=== PATIENT | female | born 2000 | race Caucasian/White ===

== ENCOUNTER 2019-06-25 22:18 | Emergency (ER) | payer MEDICAID ==
[2019-06-25 22:29] VITALS: BP 138/91; PULSE 109
--- NOTE | 2019-06-25 23:01 | EDM.PDOC ---
ED HPI GENERAL MEDICAL PROBLEM - General Chief Complaint: Skin Complaint Stated Complaint: SWELLING BEHIND RIGHT EAR Time Seen by Provider: 06/25/19 22:30 Source of Information: Reports: Patient History Limitations: Reports: No Limitations - History of Present Illness INITIAL COMMENTS - FREE TEXT/NARRATIVE: 19-year-old female has had a persistent and worsening swelling behind her right ear for the last 6 days. It's now becoming more painful and the swelling is extending down the posterior cervical neck. No erythema or fever. She was recently on antibiotics for a dental infection on that side but is off the antibiotics. She has psoriasis of the scalp which involves the area of swelling. 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 Musculoskeletal History: Reports: Back Pain, Chronic, Fracture Other Musculoskeletal History: wrist Neurological History: Reports: Headaches, Chronic Psychiatric History: Reports: Depression Endocrine/Metabolic History: Reports: Obesity/BMI 30+ Dermatologic History: Reports: Psoriasis - Infectious Disease History Infectious Disease History: Reports: Chicken Pox Social & Family History - Tobacco Use Smoking Status *Q: Current Every Day Smoker Years of Tobacco use: 10 Packs/Tins Daily: 1 Used Tobacco, but Quit: No Second Hand Smoke Exposure: Yes - Caffeine Use Caffeine Use: Reports: Soda - Alcohol Use Days Per Week of Alcohol Use: 0 - Recreational Drug Use Recreational Drug Use: No - Living Situation & Occupation Living situation: Reports: Single Occupation: Employed ED ROS GENERAL - Review of Systems Review Of Systems: See Below Constitutional: Denies: Fever, Chills HEENT: Reports: Other (Recent dental infection treated with antibiotics) Respiratory: Denies: Shortness of Breath Cardiovascular: Denies: Chest Pain GI/Abdominal: Denies: Nausea, Vomiting Skin: Reports: Other (Significant scalp and extremity psoriasis) Neurological: Denies: Headache ED EXAM, SKIN/RASH Exam: See Below Exam Limited By: No Limitations General Appearance: Alert, No Apparent Distress (Looks uncomfortable but not distressed) Ears: Other (There is a 1.5 x 2 cm firm subcutaneous nodular lesion behind the right ear with some firmness extending down the posterior cervical area for 3-5 cm. It is tender but not erythematous or warm) Respiratory/Chest: No Respiratory Distress Course - Vital Signs Last Recorded V/S: Last Vital Signs Temp 97.5 F 06/25/19 22:37 Pulse 109 H 06/25/19 22:37 Resp 16 06/25/19 22:37 BP 138/91 H 06/25/19 22:37 Pulse Ox 95 06/25/19 22:37 - Orders/Labs/Meds Orders: Active Orders 24 hr Category Date Time Status CULTURE WOUND + SMEAR [RM] Stat Lab 06/25/19 23:03 Results Meds: Medications Discontinued Medications Generic Name Dose Route Start Last Admin Trade Name Angelic PRN Reason Stop Dose Admin Lidocaine HCl 5 ml 06/25/19 22:42 06/25/19 22:51 Xylocaine-Mpf 1% INJECT 06/25/19 22:43 5 ml ONETIME ONE Administration - Re-Assessments/Exams Free Text/Narrative Re-Assessment/Exam: 06/25/19 22:58 This likely is a sebaceous cyst or abscess behind the right ear, the area was sterilized with Betadine, infiltrated with 1% lidocaine and a #11 scalpel was used to place a small incision over the abscess. Purulent material was expelled and a culture obtained. The patient was given clindamycin to take for the next 5 days, 10 hydrocodone for extra pain control and encouraged to use moist heat for the next 2-3 days. She should also be taking anti-inflammatories. Departure - Departure Time of Disposition: 23:07 Disposition: Home, Self-Care 01 Condition: Good Clinical Impression: Cutaneous abscess of head [any part, except face] - Discharge Information Instructions: Skin Abscess, [id number] Referrals: PCP,None [Primary Care Provider] - Forms: ED Department Discharge Care Plan Goals: Moist wet compresses to the area or heat will help continue draining the abscess. A regular dose of ibuprofen or naproxen will also help, and add stronger pain medication if needed. Take antibiotic as prescribed until gone, and recheck in 2-3 days if not improving satisfactorily. - My Orders Last 24 Hours: My Active Orders 06/25/19 23:03 CULTURE WOUND + SMEAR [RM] Stat - Assessment/Plan Last 24 Hours: My Active Orders 06/25/19 23:03 CULTURE WOUND + SMEAR [] Stat
== END 2019-06-25 23:07 | disposition home or self-care (01) ==
LOC: JP.ED 22:18
DX: L02.811 Cutaneous abscess of head [any part, except face] (principal); I10 Essential (primary) hypertension; E66.9 Obesity, unspecified; F17.210 Nicotine dependence, cigarettes, uncomplicated
CPT/HCPCS: 10060; 87070; 87205; 99283; J2001; 87077; 87186

== ENCOUNTER 2020-10-05 06:38 | Inpatient (IN) | payer MEDICAID ==
[2020-10-05] MEDS ORDERED: Misoprostol 50 MCG (1/2 of 100 MCG) Tab VAG ONE (08:00)
[2020-10-05] MEDS ORDERED: Sodium Chloride 0.9% 10 ML Syringe FLUSH PRN ×2 (08:15→10:13)
[2020-10-05] MEDS ORDERED: Calcium Carbonate 500 MG Tab.Chew PO PRN (08:17)
[2020-10-05] MEDS ORDERED: Ondansetron 4 MG/2 ML SDV IV PRN (08:17)
[2020-10-05] MEDS ORDERED: Acetaminophen 325 MG Tab PO PRN (08:17)
--- NOTE | 2020-10-05 08:25 | PCM.LDHP ---
L&D History of Present Illness - General Date of Service: 10/05/20 Admit Problem/Dx: Patient Status Order with Admit Dx/Problem 10/05/20 08:15 Patient Status [ADT] Routine Admission Diagnosis/Problem Admission Diagnosis/Problem Term Source of Information: Patient History Limitations: Reports: No Limitations - History of Present Illness Introduction:: 10/05/20 20 yo is here at 40 1/7 for term elective induction of labor. She is GBS neg. Hgb 13.7 today. Blood type AB pos. Rubella immune. HIV/hep B/RPR all negative. 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 She saw GI during and will go back for treatment after . No complications this . Negative harmony screen. She is obese with a BMI of 58. She is here with her mother for labor support today. Timing/Duration: Reports: other (none on monitor, patient declines having contractions) - Related Data Allergies/Adverse Reactions: Allergies Allergy/AdvReac Type Severity Reaction Status Date / Time No Known Allergies Allergy Verified 06/25/19 22:32 Home Medications: Home Meds Pnv No.95/Ferrous Fum/Folic AC [ Caplet] 1 tab PO DAILY 08/30/20 [History] Sertraline [Zoloft] 1 tab PO DAILY 08/30/20 [History] Past Medical History - Past Health History Medical/Surgical History: Denies Medical/Surgical History Cardiovascular History: Reports: Heart Murmur, Hypertension Respiratory History: Reports: Asthma 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 OB/BYN History: lmp 1 wk ago Musculoskeletal History: Reports: Back Pain, Chronic, Fracture Other Musculoskeletal History: wrist Neurological History: Reports: Headaches, Chronic Psychiatric History: Reports: Depression Endocrine/Metabolic History: Reports: Obesity/BMI 30+ Dermatologic History: Reports: Psoriasis - Infectious Disease History Infectious Disease History: Reports: Chicken Pox, MRSA Social & Family History - Family History Family Medical History: Unobtainable - Tobacco Use Tobacco Use Status *Q: Former Tobacco User Used Tobacco, but Quit: Yes Month/Year Tobacco Last Used: 01/2020 - Caffeine Use Caffeine Use: Reports: None - Recreational Drug Use Recreational Drug Use: Yes Drug Use in Last 12 Months: No - Living Situation & Occupation Living situation: Reports: Single Occupation: Employed H&P Review of Systems - Review of Systems: Review Of Systems: See Below General: Reports: No Symptoms HEENT: Reports: No Symptoms Pulmonary: Reports: No Symptoms Cardiovascular: Reports: Edema Gastrointestinal: Reports: No Symptoms Genitourinary: Reports: No Symptoms Musculoskeletal: Reports: No Symptoms Skin: Reports: No Symptoms Psychiatric: Reports: No Symptoms Neurological: Reports: No Symptoms Hematologic/Lymphatic: Reports: No Symptoms Immunologic: Reports: No Symptoms L&D Exam - Exam Exam: See Below - Vital Signs Weight: 158.757 kg - OB Specific Contraction Intensity: none Movement: Active Heart Tones: Present Heart Rate (FHR) Variability: Moderate (6-25 bmp) Presentation: Vertex Estimated Weight: unable to estimate with leopolds due to body habitus - Henao Score Henao Score Cervix Position: Midposition Henao Score Consistency: Soft Henao Score Effacement: 51-70% Henao Score Dilation: 3-4 cm Henao Score 's Station: -1 ,0 Henao Score Total: 9 - Exam General: Alert, Oriented HEENT: PERRLA, Conjunctiva Clear, EACs Clear, EOMI, Hearing Intact, Mucosa Moist & [place], Nares Patent, Normal Nasal Septum, Posterior Pharynx Clear, Pupils Equal, Pupils Reactive, TMs Clear Neck: Supple, Trachea Midline Lungs: Clear to Auscultation, Normal Respiratory Effort Cardiovascular: Regular Rate, Regular Rhythm. No: Systolic Murmur, Diastolic Murmur GI/Abdominal Exam: Normal Bowel Sounds, Soft, Non-Tender, No Organomegaly, No Distention, No Abnormal Bruit, No Mass, Pelvis Stable Rectal Exam: Normal Exam, Normal Rectal Tone Genitourinary: Normal external exam, Normal bimanual exam, Cervical dilitation, Enlarged uterus Back Exam: Normal Inspection, Full Range of Motion Extremities: Normal Inspection, Normal Range of Motion, Non-Tender, No Pedal Edema, Normal Capillary Refill Skin: Warm, Dry, Intact Neurological: Cranial Nerves Intact, Reflexes Equal Bilateral Psychiatric: Alert, Normal Affect, Normal Mood - Patient Data Lab Results Last 24 hrs: Laboratory Results - last 24 hr 10/05/20 10/05/20 10/05/20 Range/Units 06:45 06:45 06:46 WBC 8.6 (4.5-11.0) K/uL RBC 4.70 (3.30-5.50) M/uL Hgb 13.7 (12.0-15.0) g/dL Hct 41.0 (36.0-48.0) % MCV 87 (80-98) fL MCH 29 (27-31) pg MCHC 33 (32-36) % Plt Count 166 (150-400) K/uL Neut % (Auto) 65 (36-66) % Lymph % (Auto) 22 L (24-44) % [place] % (Auto) 8 H (2-6) % Eos % (Auto) 4 (2-4) % Baso % (Auto) 0 (0-1) % Urine Color Yellow (YELLOW) Urine Appearance Slightly cloudy A (CLEAR) Urine pH 6.5 (5.0-8.0) Ur Specific [place] 1.025 (1.008-1.030) Urine Protein 30 H (NEGATIVE) mg/dL Urine Glucose (UA) Negative (NEGATIVE) mg/dL Urine Ketones Negative (NEGATIVE) mg/dL Urine Occult Blood Trace-intact H (NEGATIVE) Urine Nitrite Negative (NEGATIVE) Urine Bilirubin Negative (NEGATIVE) Urine Urobilinogen 0.2 (0.2-1.0) EU/dL Ur Leukocyte Esterase Trace H (NEGATIVE) Urine RBC 0-5 (0-5) Urine WBC 5-10 H (0-5) Ur Epithelial Cells Many Amorphous Sediment Not seen Urine Bacteria Moderate Urine Mucus Many Urine Opiates Screen Negative (NEGATIVE) Ur Oxycodone Screen Negative (NEGATIVE) Urine Methadone Screen Negative (NEGATIVE) Ur Propoxyphene Screen Negative (NEGATIVE) Ur Barbiturates Screen Negative (NEGATIVE) Ur Tricyclics Screen Negative (NEGATIVE) Ur Phencyclidine Scrn Negative (NEGATIVE) Ur Amphetamine Screen Negative (NEGATIVE) U Methamphetamines Scrn Negative (NEGATIVE) Urine MDMA Screen Negative (NEGATIVE) U Benzodiazepines Scrn Negative (NEGATIVE) U Cocaine Metab Screen Negative (NEGATIVE) U Marijuana (THC) Screen Negative (NEGATIVE) Result Diagrams: 10/05/20 06:45 - Problem List (1) Term SNOMED Code(s): 11104745 ICD Code: Z34.90 - ENCNTR FOR SUPRVSN OF NORMAL , UNSP, UNSP TRIMESTER Status: Acute Current Visit: Yes (2) Psoriasis SNOMED Code(s): 3619709 ICD Code: L40.9 - PSORIASIS, UNSPECIFIED Status: Acute Current Visit: Yes (3) Elective induction of labor planned SNOMED Code(s): 305651244 ICD Code: MBV5476 - Status: Acute Current Visit: Yes (4) Hepatitis C antibody positive in blood SNOMED Code(s): 652583138 ICD Code: R76.8 - OTHER SPECIFIED ABNORMAL IMMUNOLOGICAL FINDINGS IN SERUM Status: Acute Current Visit: Yes (5) Obesity affecting SNOMED Code(s): 383856967374, 430686318846 ICD Code: O99.210 - OBESITY COMPLICATING , UNSPECIFIED TRIMESTER Status: Acute Current Visit: Yes Problem List Initiated/Reviewed/Updated: Yes Orders Last 24hrs: Active Orders 24 hr Category Date Time Status Patient Status [ADT] Routine ADT 10/05/20 08:15 Ordered Communication Order [RC] ASDIRECTED Care 10/05/20 08:15 Ordered Communication Order [RC] ASDIRECTED Care 10/05/20 08:17 Ordered Heart Tones [RC] PER UNIT ROUTINE Care 10/05/20 08:15 Ordered Non Stress Test [RC] Click to Edit Care 10/05/20 08:15 Ordered Notify Provider Vital Signs [RC] PRN Care 10/05/20 08:16 Ordered Notify Provider [RC] PRN Care 10/05/20 08:15 Ordered Notify Provider [RC] PRN Care 10/05/20 08:17 Ordered Up ad Kylee [RC] ASDIRECTED Care 10/05/20 08:15 Ordered VTE/DVT Education [RC] Click to Edit Care 10/05/20 08:18 Ordered Vital Signs [RC] PER UNIT ROUTINE Care 10/05/20 08:15 Ordered Regular Diet [DIET] Diet 10/05/20 Breakfast Active Acetaminophen [TylenoL] Med 10/05/20 08:17 Ordered 650 mg PO Q4H PRN Calcium Carbonate [Tums] Med 10/05/20 08:17 Ordered 1,000 mg PO Q2HR PRN Ondansetron [Zofran] Med 10/05/20 08:17 Ordered 4 mg IV Q4H PRN Sodium Chloride 0.9% [Saline Flush] Med 10/05/20 08:15 Ordered 10 ml FLUSH ASDIRECTED PRN DVT/VTE Prophylaxis Reflex [OM.PC] Routine Oth 10/05/20 08:17 Ordered Saline Lock Insert [OM.PC] Routine Oth 10/05/20 08:15 Ordered Saline Lock Insert [OM.PC] Routine Oth 10/05/20 08:17 Ordered Resuscitation Status Routine Resus Stat 10/05/20 08:15 Ordered Assessment/Plan Comment:: 10/05/20 here for elective induction of labor at 40 1/7 BMI 58.2 SVE 370/-1 Positive hepatitis C GBS negative Plan: Cytotec 50 mcg placed vaginally, lay flat for 1 hour and then up and moving Anticipate Monitor contractions and FHT's per protocol Unsure of pain plan, she thinks epidural
[2020-10-05] MEDS ORDERED: diphenhydrAMINE 50 MG/ML SDV IVPUSH PRN ×2 (10:13)
[2020-10-05] MEDS ORDERED: ePHEDrine 50 MG/ML SDV IVPUSH PRN (10:13)
[2020-10-05] MEDS ORDERED: Naloxone 0.4 MG/ML SDV IVPUSH PRN (10:13)
[2020-10-05] MEDS ORDERED: fentaNYL 100 MCG/2 ML SDV IVPUSH PRN (10:49)
--- NOTE | 2020-10-05 10:52 | PCM.PNLD ---
Labor Progress Note - VS & Meds Vital Signs: Last Vital Signs Temp 36.9 C 10/05/20 09:12 Pulse 96 10/05/20 09:12 Resp 18 10/05/20 09:12 BP 128/80 10/05/20 09:12 Pulse Ox 95 10/05/20 09:12 Active Medications: Current Medications Acetaminophen (Tylenol) 650 mg PO Q4H PRN PRN Reason: Pain (Mild 1-3) and fever Calcium Carbonate/Glycine (Tums) 1,000 mg PO Q2H PRN PRN Reason: Indigestion Diphenhydramine HCl (Benadryl) 25 mg IVPUSH Q6H PRN PRN Reason: Itching Diphenhydramine HCl (Benadryl) 50 mg IVPUSH Q6H PRN PRN Reason: Itching Ephedrine Sulfate (Ephedrine Sulfate) 10 mg IVPUSH ASDIRECTED PRN PRN Reason: Hypotension Fentanyl (Sublimaze) 50 mcg IVPUSH Q1H PRN PRN Reason: Pain (moderate 4-6) Oxytocin/Sodium Chloride (Pitocin In Ns 20 Units/1,000 Ml) 20 unit in 1,000 mls @ 6 mls/hr IV TITRATE NATALYA; Protocol Naloxone HCl (Narcan) 0.1 mg IVPUSH ASDIRECTED PRN PRN Reason: Oversedation Ondansetron HCl (Zofran) 4 mg IV Q4H PRN PRN Reason: Nausea/Vomiting Sodium Chloride (Saline Flush) 10 ml FLUSH ASDIRECTED PRN PRN Reason: Keep Vein Open Sodium Chloride (Saline Flush) 10 ml FLUSH ASDIRECTED PRN PRN Reason: Keep Vein Open Discontinued Medications Misoprostol (Cytotec) 50 mcg VAG ONETIME ONE Stop: 10/05/20 08:01 Last Admin: 10/05/20 08:09 Dose: 50 mcg Documented by: - Uterine Contractions Uterine Monitoring Mode: External [place] Contraction Frequency (min): 3-4 Contraction Duration (sec): 60-70 Contraction Intensity: Moderate Uterine Resting Tone: Soft - Monitoring Monitor Mode: External Ultrasound Heart Rate (FHR) Variability: Moderate (6-25 bmp) Accelerations: Present, 15x15 Decelerations: None Strip Review: Category I - Vaginal Exam Dilation (cm): 4 Effacement (Percent): 70 Station: -1 Sterile Vaginal Exam Performed By: Leslee Goff - Labor Progress (Free Text) Labor Progress: 10/05/20 Patient rates pain 5/10 and is yoanna every 2 min with last check. Membranes intact. She was asking for epidural. We placed her in the tub and she is comfortable and now she wants to wait for epidural. Fentanyl IV ordered if needed. Will recheck around lunch time and possibly start pitocin. Category 1 tracing.
[2020-10-05] MEDS ORDERED: Sodium Chloride 0.9% 1,000 ML IV SCH (12:00)
--- NOTE | 2020-10-05 12:36 | PCM.PNLD ---
Labor Progress Note - VS & Meds Vital Signs: Last Vital Signs Temp 36.9 C 10/05/20 09:12 Pulse 96 10/05/20 09:12 Resp 18 10/05/20 09:12 BP 128/80 10/05/20 09:12 Pulse Ox 95 10/05/20 09:12 Active Medications: Current Medications Acetaminophen (Tylenol) 650 mg PO Q4H PRN PRN Reason: Pain (Mild 1-3) and fever Calcium Carbonate/Glycine (Tums) 1,000 mg PO Q2H PRN PRN Reason: Indigestion Diphenhydramine HCl (Benadryl) 25 mg IVPUSH Q6H PRN PRN Reason: Itching Diphenhydramine HCl (Benadryl) 50 mg IVPUSH Q6H PRN PRN Reason: Itching Ephedrine Sulfate (Ephedrine Sulfate) 10 mg IVPUSH ASDIRECTED PRN PRN Reason: Hypotension Fentanyl (Sublimaze) 50 mcg IVPUSH Q1H PRN PRN Reason: Pain (moderate 4-6) Oxytocin/Sodium Chloride (Pitocin In Ns 20 Units/1,000 Ml) 20 unit in 1,000 mls @ 6 mls/hr IV TITRATE NATALYA; Protocol Naloxone HCl (Narcan) 0.1 mg IVPUSH ASDIRECTED PRN PRN Reason: Oversedation Ondansetron HCl (Zofran) 4 mg IV Q4H PRN PRN Reason: Nausea/Vomiting Sodium Chloride (Saline Flush) 10 ml FLUSH ASDIRECTED PRN PRN Reason: Keep Vein Open Sodium Chloride (Saline Flush) 10 ml FLUSH ASDIRECTED PRN PRN Reason: Keep Vein Open Discontinued Medications Misoprostol (Cytotec) 50 mcg VAG ONETIME ONE Stop: 10/05/20 08:01 Last Admin: 10/05/20 08:09 Dose: 50 mcg Documented by: - Uterine Contractions Uterine Monitoring Mode: External [place] Contraction Frequency (min): 1-2 Contraction Duration (sec): 60-70 Contraction Intensity: Moderate to Strong Uterine Resting Tone: Soft - Monitoring Monitor Mode: External Ultrasound Heart Rate (FHR) Baseline: 140 Heart Rate (FHR) Variability: Moderate (6-25 bmp) Accelerations: Present, 15x15 Decelerations: Early Strip Review: Category I - Vaginal Exam Dilation (cm): 5-6 Effacement (Percent): 80 Station: -1 Cervical Position: Midposition Sterile Vaginal Exam Performed By: Leila Barrett - Labor Progress (Free Text) Labor Progress: 10/05/20 SVE 5-/-1. AROM done with clear fluids. Verbal consent obtained from patient after review of procedure. She is requesting an epidural. Fluid bolus going. Contractions every 1-2 min. Early decelerations after AROM.
--- NOTE | 2020-10-05 14:38 | PCM.PNLD ---
Labor Progress Note - VS & Meds Vital Signs: Last Vital Signs Temp 36.9 C 10/05/20 09:12 Pulse 96 10/05/20 09:12 Resp 18 10/05/20 09:12 BP 128/80 10/05/20 09:12 Pulse Ox 95 10/05/20 09:12 Active Medications: Current Medications Acetaminophen (Tylenol) 650 mg PO Q4H PRN PRN Reason: Pain (Mild 1-3) and fever Calcium Carbonate/Glycine (Tums) 1,000 mg PO Q2H PRN PRN Reason: Indigestion Diphenhydramine HCl (Benadryl) 25 mg IVPUSH Q6H PRN PRN Reason: Itching Diphenhydramine HCl (Benadryl) 50 mg IVPUSH Q6H PRN PRN Reason: Itching Ephedrine Sulfate (Ephedrine Sulfate) 10 mg IVPUSH ASDIRECTED PRN PRN Reason: Hypotension Fentanyl (Sublimaze) 50 mcg IVPUSH Q1H PRN PRN Reason: Pain (moderate 4-6) Oxytocin/Sodium Chloride (Pitocin In Ns 20 Units/1,000 Ml) 20 unit in 1,000 mls @ 6 mls/hr IV TITRATE NATALYA; Protocol Sodium Chloride (Normal Saline) 1,000 mls @ 500 mls/hr IV ASDIRECTED NATALYA Naloxone HCl (Narcan) 0.1 mg IVPUSH ASDIRECTED PRN PRN Reason: Oversedation Ondansetron HCl (Zofran) 4 mg IV Q4H PRN PRN Reason: Nausea/Vomiting Sodium Chloride (Saline Flush) 10 ml FLUSH ASDIRECTED PRN PRN Reason: Keep Vein Open Sodium Chloride (Saline Flush) 10 ml FLUSH ASDIRECTED PRN PRN Reason: Keep Vein Open Discontinued Medications Misoprostol (Cytotec) 50 mcg VAG ONETIME ONE Stop: 10/05/20 08:01 Last Admin: 10/05/20 08:09 Dose: 50 mcg Documented by: - Uterine Contractions Uterine Monitoring Mode: External [place] Contraction Frequency (min): 1-2 Contraction Duration (sec): 60-70 Contraction Intensity: Moderate to Strong Uterine Resting Tone: Soft - Monitoring Monitor Mode: External Ultrasound Heart Rate (FHR) Baseline: 140 Heart Rate (FHR) Variability: Moderate (6-25 bmp) Accelerations: Present, 15x15 Decelerations: Early Strip Review: Category I - Vaginal Exam Dilation (cm): 7-8 Effacement (Percent): 90 Station: -1 Cervical Position: Midposition Sterile Vaginal Exam Performed By: Leila Barrett - Labor Progress (Free Text) Labor Progress: 10/05/20 Patient was comfortable right after epidural was placed. Epidural has worn off now and she is crying due to pain. 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 SVE /-1. It has been difficult to keep baby on the monitor with body habitus and her moving around so much. What tracing we do have is category 1. If pitocin is started I will consider a scalp electrode for better monitoring. Continue to monitor and anticipate .
[2020-10-05] MEDS ORDERED: Bupivacaine 0.5%/EPINEPHrine 1:200,000 50 ML MDV ONE (14:40)
--- NOTE | 2020-10-05 15:38 | ANES ---
DATE OF SERVICE: 10/05/2020 TIME: 1445. I was called to the OB department to evaluate Ms. Orozco for discomfort. She states she is having a lot of back labor and has an epidural in place. She was sitting quite high and I did instruct her that she needs to have the bed down in order for that level stay where it needs to be. I did bolus her with 10 mL of 0.5% Sensorcaine and then turned her ropivacaine drip up to 15 mL/h. We will continue to monitor her throughout her Labor and Delivery. Sagar Cunningham CRNA /[id number]
--- NOTE | 2020-10-05 17:02 | PCM.PNLD ---
Labor Progress Note - VS & Meds Vital Signs: Last Vital Signs Temp 36.9 C 10/05/20 09:12 Pulse 84 10/05/20 15:25 Resp 18 10/05/20 15:25 BP 128/70 10/05/20 15:25 Pulse Ox 99 10/05/20 15:25 Active Medications: Current Medications Acetaminophen (Tylenol) 650 mg PO Q4H PRN PRN Reason: Pain (Mild 1-3) and fever Calcium Carbonate/Glycine (Tums) 1,000 mg PO Q2H PRN PRN Reason: Indigestion Diphenhydramine HCl (Benadryl) 25 mg IVPUSH Q6H PRN PRN Reason: Itching Diphenhydramine HCl (Benadryl) 50 mg IVPUSH Q6H PRN PRN Reason: Itching Ephedrine Sulfate (Ephedrine Sulfate) 10 mg IVPUSH ASDIRECTED PRN PRN Reason: Hypotension Fentanyl (Sublimaze) 50 mcg IVPUSH Q1H PRN PRN Reason: Pain (moderate 4-6) Oxytocin/Sodium Chloride (Pitocin In Ns 20 Units/1,000 Ml) 20 unit in 1,000 mls @ 6 mls/hr IV TITRATE NATALYA; Protocol Last Admin: 10/05/20 16:13 Dose: 2 munits/min, 6 mls/hr Documented by: Sodium Chloride (Normal Saline) 1,000 mls @ 500 mls/hr IV ASDIRECTED NATALYA Last Admin: 10/05/20 12:00 Dose: 500 mls/hr Documented by: Naloxone HCl (Narcan) 0.1 mg IVPUSH ASDIRECTED PRN PRN Reason: Oversedation Ondansetron HCl (Zofran) 4 mg IV Q4H PRN PRN Reason: Nausea/Vomiting Sodium Chloride (Saline Flush) 10 ml FLUSH ASDIRECTED PRN PRN Reason: Keep Vein Open Sodium Chloride (Saline Flush) 10 ml FLUSH ASDIRECTED PRN PRN Reason: Keep Vein Open Discontinued Medications Bupivacaine HCl/Epinephrine Bitart (Marcaine 0.5%/Epinephrine 1:200,000) Confirm Administered Dose 50 ml .ROUTE .STK-MED ONE Stop: 10/05/20 14:41 Misoprostol (Cytotec) 50 mcg VAG ONETIME ONE Stop: 10/05/20 08:01 Last Admin: 10/05/20 08:09 Dose: 50 mcg Documented by: - Uterine Contractions Uterine Monitoring Mode: External [place] Contraction Frequency (min): 1-2 Contraction Duration (sec): 70-110 Contraction Intensity: Moderate to Strong Uterine Resting Tone: Soft - Monitoring Monitor Mode: External Ultrasound Heart Rate (FHR) Variability: Moderate (6-25 bmp) Accelerations: Present, 15x15 Decelerations: Early Strip Review: Category I - Vaginal Exam Dilation (cm): 9 Effacement (Percent): 100 Station: 0 Cervical Position: Midposition Sterile Vaginal Exam Performed By: Leila Barrett - Labor Progress (Free Text) Labor Progress: 10/05/20 scale electrode and IUPC both placed due to very difficult time picking up baby and contractions. Pitocin was started at 2 mu due to no change for some time and decreased contractions. Patient is feeling pushy. She was comfortable after second epidural bolus but is now feeling pain again. Category 1-2 tracing. Baseline is minimal when mom is on her back.
--- NOTE | 2020-10-05 17:38 | PCM.SN.2 ---
- Free Text/Narrative Note: I was called around 1400 due to increased vaginal pain and pressure. We removed the cobb catheter at that time and she was 7 cm. Very difficult time getting FHT's for quite some time due to body habitus. After epidural we had a small window of tracing that showed a large change in baseline. The risks and benefits were weighed and a scalp electrode was placed due to concern for needing to monitor baby's health. Baseline continued to be very low and close monitoring was done. I did consult mother about this with her hepatitis C status. There is no maternal bleeding at the time of choosing to place it.
[2020-10-05] MEDS ORDERED: ePHEDrine 50 MG/ML SDV ONE (18:29)
[2020-10-05] MEDS ORDERED: Oxytocin 10 Units/1 ML SDV ONE ×2 (18:29→18:38)
[2020-10-05] MEDS ORDERED: Ondansetron 4 MG/2 ML SDV ONE (18:29)
[2020-10-05] MEDS ORDERED: Phenylephrine 1% 10 MG/ML SDV ONE (18:29)
[2020-10-05] MEDS ORDERED: Sodium Chloride 0.9% 10 ML ONE ×3 (18:29→19:09)
--- NOTE | 2020-10-05 18:29 | PCM.PNLD ---
Labor Progress Note - VS & Meds Vital Signs: Last Vital Signs Temp 36.9 C 10/05/20 09:12 Pulse 84 10/05/20 15:25 Resp 18 10/05/20 16:30 BP 121/63 10/05/20 16:30 Pulse Ox 99 10/05/20 16:30 Active Medications: Current Medications Acetaminophen (Tylenol) 650 mg PO Q4H PRN PRN Reason: Pain (Mild 1-3) and fever Calcium Carbonate/Glycine (Tums) 1,000 mg PO Q2H PRN PRN Reason: Indigestion Diphenhydramine HCl (Benadryl) 25 mg IVPUSH Q6H PRN PRN Reason: Itching Diphenhydramine HCl (Benadryl) 50 mg IVPUSH Q6H PRN PRN Reason: Itching Ephedrine Sulfate (Ephedrine Sulfate) 10 mg IVPUSH ASDIRECTED PRN PRN Reason: Hypotension Fentanyl (Sublimaze) 50 mcg IVPUSH Q1H PRN PRN Reason: Pain (moderate 4-6) Oxytocin/Sodium Chloride (Pitocin In Ns 20 Units/1,000 Ml) 20 unit in 1,000 mls @ 6 mls/hr IV TITRATE NATALYA; Protocol Last Admin: 10/05/20 16:13 Dose: 2 munits/min, 6 mls/hr Documented by: Sodium Chloride (Normal Saline) 1,000 mls @ 500 mls/hr IV ASDIRECTED NATALYA Last Admin: 10/05/20 12:00 Dose: 500 mls/hr Documented by: Naloxone HCl (Narcan) 0.1 mg IVPUSH ASDIRECTED PRN PRN Reason: Oversedation Ondansetron HCl (Zofran) 4 mg IV Q4H PRN PRN Reason: Nausea/Vomiting Sodium Chloride (Saline Flush) 10 ml FLUSH ASDIRECTED PRN PRN Reason: Keep Vein Open Sodium Chloride (Saline Flush) 10 ml FLUSH ASDIRECTED PRN PRN Reason: Keep Vein Open Discontinued Medications Bupivacaine HCl/Epinephrine Bitart (Marcaine 0.5%/Epinephrine 1:200,000) Confirm Administered Dose 50 ml .ROUTE .STK-MED ONE Stop: 10/05/20 14:41 Misoprostol (Cytotec) 50 mcg VAG ONETIME ONE Stop: 10/05/20 08:01 Last Admin: 10/05/20 08:09 Dose: 50 mcg Documented by: - Uterine Contractions Uterine Monitoring Mode: IUPC Contraction Frequency (min): 1-2 Contraction Duration (sec): 60-80 Contraction Intensity: Strong Uterine Resting Tone: Soft - Monitoring Monitor Mode: External Ultrasound Heart Rate (FHR) Variability: Moderate (6-25 bmp) Accelerations: Present, 15x15 Strip Review: Category II - Vaginal Exam Dilation (cm): 9 Effacement (Percent): 100 Station: 0 Cervical Position: Midposition Sterile Vaginal Exam Performed By: Leila Barrett - Labor Progress (Free Text) Labor Progress: 10/05/20 No cervical change for several hours. We have quite some time of documented adequate contractions. The FSE fell off and we have chosen not to replace it due to risk. Attempting Doptone now although we are having a very difficult time getting FHT's. The decision was made to go to section. Pitocin was turned off. Surgery crew notified for an urgent section for failure to progress in first stage, difficulty picking up heart tones, and decreased baseline. Good variability has been maintained through out all of this when tracing has been done. Will consider FSE if benefit outweighs risk and unable to obtain heart tones again. Patient is aware and agrees.
[2020-10-05] MEDS ORDERED: ceFAZolin 1 GM Vial ONE (18:38)
[2020-10-05] MEDS ORDERED: cefOXitin 2 GM Vial ONE (19:09)
[2020-10-05] MEDS ORDERED: Lactated Ringers 1,000 ML ONE (20:07)
[2020-10-05] MEDS ORDERED: fentaNYL 100 MCG/2 ML SDV ONE ×2 (20:25→20:26)
[2020-10-05] MEDS ORDERED: hydrOXYzine HCL 100 MG/2 ML SDV IM PRN (21:22)
[2020-10-05] MEDS ORDERED: Dextrose 5%-Lactated Ringers 1,000 ML IV SCH (21:30)
[2020-10-05] MEDS ORDERED: HYDROmorphone/Normal Saline 15 MG/30 ML PCA IV PRN (21:38)
[2020-10-05] MEDS ORDERED: Naloxone 0.4 MG/ML SDV IV PRN (22:00)
[2020-10-05] MEDS: Ibuprofen 600 MG Tab PO SCH (22:22)
[2020-10-05] MEDS ORDERED: Labetalol 100 MG Tab PO ONE (23:46)
[2020-10-05] MEDS: Acetaminophen 500 MG Tab PO SCH (23:53)
--- NOTE | 2020-10-06 00:08 | ANES ---
DATE OF SERVICE: 10/05/2020 INDICATION: Ms. Orozco is a 20-year-old female patient whom I was referred to evaluate for a labor epidural by Leila Barrett. She is in active labor probably around 6 cm is from what I am told and would like an epidural. The risks and benefits of the procedure were explained to the patient. She wished to proceed with a labor epidural. TECHNIQUE: Her back was prepped x3 with Betadine, 1% lidocaine skin local was used. The epidural was placed to what I thought was L3-4 using a 17-gauge Tuohy needle in loss of resistance technique. The epidural had very good feel throughout and the epidural space was easily identified. Negative CSF, negative blood, and negative paresthesias were noted. Therefore, her catheter was threaded to 15 cm at the skin. There was negative CSF, negative blood, and negative paresthesias with the catheter as well. A 1.5% lidocaine with epinephrine test dose was given, this test dose was negative. The catheter was then secured with Tegaderm and tape. The patient was placed in a supine position where 12 mL of 0.2% ropivacaine was given for bolus. The bolus had very nice relief and her vital signs remained stable. Therefore, 0.2% ropivacaine drip was started at 12 mL/h. Her vital signs remained stable throughout the procedure and we will continue to monitor her throughout her labor and delivery. Sagar Cunningham CRNA /[id number]
[2020-10-06] MEDS: cefOXitin 2 GM in Sodium Chloride 0.9% 50 ML IV SCH ×4 (01:49→20:00)
[2020-10-06] MEDS ORDERED: Dextrose 5%-Lactated Ringers 1,000 ML IV SCH (03:30)
[2020-10-06] MEDS: Ibuprofen 600 MG Tab PO SCH ×4 (04:30→21:40)
[2020-10-06] MEDS: Acetaminophen 500 MG Tab PO SCH ×2 (06:01→12:31)
[2020-10-06] MEDS ORDERED: Ondansetron 4 MG Tab.DIS PO PRN (07:31)
[2020-10-06] MEDS ORDERED: oxyCODONE 5 MG Tab PO PRN (07:33)
[2020-10-06] MEDS: Dextrose 5%-Lactated Ringers 1,000 ML IV SCH ×2 (07:54→17:57)
[2020-10-06] MEDS: Labetalol 100 MG Tab PO SCH ×2 (08:45→20:10)
[2020-10-06] MEDS: Docusate Sodium 100 MG Cap PO SCH ×2 (08:46→20:11)
--- NOTE | 2020-10-06 09:03 | PN ---
DATE OF SERVICE: 10/06/2020 SUBJECTIVE: Nina is postop day 1 following a section, failure to progress after induction. She reports pain is controlled with the PHOTOVOLTAIC PANEL INSTALLER. Oral intake 880. Has a Fam catheter. Urine output total 950. During the night, she did receive labetalol 100 mg for elevated blood pressure of 159/84, 195/95, 175/92, and currently blood pressure is 137/66. REVIEW OF SYSTEMS: Remainder of review of systems negative for any pertinent positives and negatives. OBJECTIVE: GENERAL: Nina Orozco is a pleasant 20-year-old female, alert, oriented. VITAL SIGNS: TPR at 0752 is 98.6, 102, 18, blood pressure 137/66. HEENT: Negative. NECK: Supple. HEART: Regular rate and rhythm. LUNGS: Clear. ABDOMEN: Dressings dry and intact. Abdominal binder is on. EXTREMITIES: Without peripheral edema. ASSESSMENT: section for term with failure to progress. Date of procedure 10/05/2020. Surgeon: Edenilson Obrien MD PLAN: 1. Discontinue Fam catheter. 2. Discontinue cardiac monitoring. 3. May shower. 4. Full liquid diet, breakfast. 5. Regular diet at noon. 6. Decrease D5 LR to 100 mL per hour. 7. Colace 100 mg p.o. b.i.d. 8. Zofran ODT 4 mg every 4 hours p.r.n. nausea and vomiting. 9. Oxycodone 5 mg q.6 hours p.r.n. pain when the PHOTOVOLTAIC PANEL INSTALLER is discontinued. 10.Continued use of incentive spirometer. 11.We will evaluate p.r.n. or in a.m. Lashonda Ruiz PA-C /[id number]
[2020-10-06] MEDS: Acetaminophen/HYDROcodone 325-5 MG Tab PO PRN ×3 (14:01→22:05)
[2020-10-07] MEDS: cefOXitin 2 GM in Sodium Chloride 0.9% 50 ML IV SCH ×2 (02:40→07:48)
[2020-10-07] MEDS: Acetaminophen/HYDROcodone 325-5 MG Tab PO PRN ×5 (02:40→21:29)
[2020-10-07] MEDS: Ibuprofen 600 MG Tab PO SCH ×4 (03:36→21:28)
--- NOTE | 2020-10-07 08:54 | PN ---
DATE OF SERVICE: 10/07/2020 SUBJECTIVE: Nina is postop day 2. Nina reports pain is controlled. She has been up ambulating. Regular diet. Vital signs stable. She has no questions or concerns. OBJECTIVE: GENERAL: Nina Orozco is a pleasant 20-year-old female. She is alert and orientated. VITAL SIGNS: TPR: 98.4, 97, 18. Blood pressure is 156/98. HEENT: Negative. NECK: Supple. HEART: Regular rate and rhythm. LUNGS: Clear. ABDOMEN: Aquacel dressing is intact. There is some shadowing noted on the dressing. JAGUAR drain draining a very light pink drainage 10 mL in the past 24 hours. No bowel movements yet. Passing flatus. EXTREMITIES: Without peripheral edema. ASSESSMENT: section for term with failure to progress. Date of procedure 10/05/2020. Surgeon: Edenilson Obrien MD. PLAN: 1. Replace Aquacel dressing. 2. Encouraged use of incentive spirometer. 3. We will evaluate p.r.n. or in a.m. 4. Plan discharge in a.m. Lashonda Ruiz PA-C /[id number]
[2020-10-07] MEDS: Labetalol 100 MG Tab PO SCH ×2 (09:04→20:48)
[2020-10-07] MEDS: Docusate Sodium 100 MG Cap PO SCH ×2 (09:04→20:48)
[2020-10-07] MEDS ORDERED: Furosemide 40 MG Tab PO ONE (14:09)
[2020-10-08] MEDS: Ibuprofen 600 MG Tab PO SCH (03:45)
[2020-10-08 08:30] VITALS: PULSE 97
[2020-10-08] MEDS: Acetaminophen/HYDROcodone 325-5 MG Tab PO PRN (08:47)
[2020-10-08] MEDS: Docusate Sodium 100 MG Cap PO SCH (08:47)
[2020-10-08] MEDS: Labetalol 100 MG Tab PO SCH (08:47)
[2020-10-08 08:48] VITALS: BP 147/74
--- NOTE | 2020-10-09 12:22 | DISCH ---
ADMISSION DIAGNOSIS: Term . DISCHARGE DIAGNOSES: section for term with failure to progress. Delivery of a viable male . Date of procedure 10/05/2020. Surgeon: Edenilson Obrien MD. HISTORY: Nina Orozco is a pleasant 20-year-old female at term , and who came into the hospital earlier in the date for induction. There was failure to progress and after preoperative evaluation and discussion of possible risks and possible complications, she wished to proceed with surgical procedure. HOSPITAL COURSE: Nina had her section on 10/05/2020. She had no operative complications. On postoperative day 1, IV was decreased. Fam catheter was discontinued. She was started on oral pain medication along with ibuprofen and Tylenol. Diet was advanced to regular. On postoperative day 2, Aquacel dressing was changed. She was given bowel stimulation. Activity was good, up ambulating. On postoperative day 3, the pain was controlled, vital signs stable, activity was good, and she was able to be discharged to home. PHYSICAL EXAMINATION: GENERAL: Nina Orozco is a pleasant 20-year-old female. VITAL SIGNS: Height is 5 feet 5 inches. Weight is 350 pounds. BMI is 58.2. TPR; 98.8, 97, 18. Blood pressure 147/70. HEENT: Negative. NECK: Supple. HEART: Regular rate and rhythm. LUNGS: Clear. ABDOMEN: Aquacel dressing is on. There is no shadowing. She will be getting an abdominal binder prior to discharge. EXTREMITIES: Without peripheral edema. DISPOSITION: Discharged to home. CONDITION: Stable and improving. FOLLOWUP: Followup appointment with Lashonda Ruiz PA-C, on 10/19/2020 at 10 a.m. HOME MEDICATIONS: Jackson 5/325 mg 1 tablet every 6 hours p.r.n. pain, #28; Colace 100 mg p.o. b.i.d., #60; milk of magnesia 30 mL, 2 were sent home with the patient, to take 1 daily p.r.n. constipation; ibuprofen 600 mg p.o. q.6 hours, #40. DIET: Usual diet as tolerated. Drink 8 to 10 glasses of water a day. ACTIVITY: No lifting over 10 pounds for 6 weeks, but may lift baby and car seat. May shower. Keep operative site clean and dry. Wear abdominal binder for 6 weeks or longer. Notify provider if any fever, increased pain, swelling, redness, drainage, nausea, or vomiting. SPECIAL INSTRUCTION: Use incentive spirometer 10 times every hour while awake. /[id number]
--- NOTE | 2020-10-10 10:25 | OR ---
DATE OF PROCEDURE: 10/05/2020 SURGEON: Edenilson Obrien MD PREOPERATIVE DIAGNOSIS: Term with failure to progress. POSTOPERATIVE DIAGNOSIS: section (57315). ANESTHESIA: Spinal. COMPUTER AIDED DESIGN DESIGNER: Leila Barrett CNM INDICATION FOR PROCEDURE: This is a 20-year-old female presenting with ongoing induction. The patient presented at term and has now been pushing for an extended period with no further progress and the decision was made to proceed with a section. Potential risks of the procedure were reviewed with the patient including bleeding, infection, injury to underlying viscera, injury to mother and/or baby during the delivery were all reviewed, and the patient wishes to proceed. DETAILS OF PROCEDURE: The patient was taken to the operating room and after spinal anesthetic was placed, a Fam catheter was inserted, and the patient was placed in a supine position with a roll underneath the right hip. The abdomen was then prepped and draped. Due to the degree of obesity, a midline incision was made from the umbilicus down toward the pubis carried down through the full-thickness abdominal wall. Upon entering the peritoneal cavity, the peritoneal reflection of the bladder on the uterus was incised and reflected downward. A transverse lower uterine segment incision was made and a viable male was delivered through vertex presentation. The baby's face was facing posteriorly slightly toward the left, i.e. this was not an oblique presentation. After delivery, the cord was clamped and cut, routine care given off the field per Leila Barrett CNM. The placenta and membranes were then delivered without difficulty and the patient given IV intrauterine oxytocin and IV cefoxitin. Good uterine contractions were noted. The uterus was then closed with 2 layers of 2-0 Vicryl stitch as was the peritoneal reflection of the bladder on the uterus and the midline fascia was then approximated with #2 Vicryl stitch. A 10-Sami Woodrow-Doe drain was then placed through a stab wound superior to the main incision given the amount of edema present and the incision closed with 3 layers of 3-0 and 4-0 Vicryl stitch deep and then min for the skin. Dressing was applied. The patient was taken to the recovery room in satisfactory condition. Per ACOG guidelines, Leila Barrett assisted in this case and facilitated ongoing care of the patient and baby during the course of the section. Edenilson Obrien MD /[id number]
== END 2020-10-08 11:45 | disposition home or self-care (01) | DRG 788 ==
LOC: JP.OB 06:38 → OBSVTOIN 19:46 → JP.MS 19:47
PROVIDERS: ADMIT Advanced Practice Midwife; ATTEND Surgery
PROC: 10D00Z1 Extraction of Products of Conception, Low, Open Approach (ICD-10-PCS; principal; 2020-10-05)
PROC: 10H07YZ Insertion of Other Device into Products of Conception, Via Natural or Artificial Opening (ICD-10-PCS; 2020-10-05)
PROC: 10907ZC Drainage of Amniotic Fluid, Therapeutic from Products of Conception, Via Natural or Artificial Opening (ICD-10-PCS; 2020-10-05)
DX: O48.0 Post-term pregnancy (principal); O62.1 Secondary uterine inertia; Z3A.40 40 weeks gestation of pregnancy; Z37.0 Single live birth; O99.214 Obesity complicating childbirth; E66.9 Obesity, unspecified; O99.344 Other mental disorders complicating childbirth; F32.9 Major depressive disorder, single episode, unspecified; Z87.891 Personal history of nicotine dependence; R76.8 Other specified abnormal immunological findings in serum; O75.89 Other specified complications of labor and delivery; O76 Abnormality in fetal heart rate and rhythm complicating labor and delivery
CPT/HCPCS: 36415; 51702; 59409; 80053; 80305-QW; 81001; 83615; 85025; 86850; 86900; 86901; 99211; A9270-GY; J0690; J0694; J1170; J2370; J2405; J2590; J3010; J3410; J3490; J7030; J7050; J7120; J7121

== ENCOUNTER 2020-11-03 17:19 | Emergency (ER) | payer MEDICAID ==
[2020-11-03 17:39] VITALS: BP 137/75; PULSE 87
[2020-11-03] MEDS ORDERED: Ketorolac 60 MG/2 ML SDV IM ONE (18:01)
--- NOTE | 2020-11-03 18:13 | EDM.PDOC ---
ED HPI GENERAL MEDICAL PROBLEM - General Chief Complaint: Abdominal Pain Stated Complaint: STOMACH PAIN Time Seen by Provider: 11/03/20 18:00 Source of Information: Reports: Patient, Old Records, RN History Limitations: Reports: No Limitations - History of Present Illness INITIAL COMMENTS - FREE TEXT/NARRATIVE: 20 yo female here with low abdominal pain in the area of her prior from Oct.05. This pain is much worse over the past few days. No fever. Pain is worse with moving or touching area. No pain if she lies quietly on her back. No change in bowel or bladder fxn. Was seen in the clinic today and an abdominal CT scan was ordered that showed no pathology. Onset: Gradual Duration: Day(s):, Getting Worse Location: Reports: Abdomen Quality: Reports: Burning, Sharp Severity: Moderate Improves with: Reports: Rest Worsens with: Reports: Movement Context: Reports: Other (See HPI) Associated Symptoms: Reports: No Other Symptoms Treatments HULL AND DECK REMOVER: Reports: Other (see below) (Hatch at 4 pm) Pelvic Pain Score (Numeric/FACES): 10 - Related Data Allergies Allergy/AdvReac Type Severity Reaction Status Date / Time No Known Allergies Allergy Verified 11/03/20 18:00 Home Meds: Home Meds Pnv No.95/Ferrous Fum/Folic AC [ Caplet] 1 tab PO DAILY 08/30/20 [History] Sertraline [Zoloft] 1 tab PO DAILY 08/30/20 [History] Acetaminophen/HYDROcodone [Hatch 325-5 MG] 1 tab PO Q6H PRN #28 tablet 10/08/20 [Rx] Ibuprofen [Motrin] 600 mg PO Q6H #40 tablet 10/08/20 [Rx] Ketorolac [Toradol] 10 mg PO Q6H PRN #10 tab 11/03/20 [Rx] Nitrofurantoin Monohyd/M-Cryst [Macrobid 100 mg Capsule] 100 mg PO Q12H #10 capsule 11/03/20 [Rx] Past Medical History - Past Health History Medical/Surgical History: Denies Medical/Surgical History Cardiovascular History: Reports: Heart Murmur, Hypertension Respiratory History: Reports: Asthma [employer] History: Reports: Other [employer] History: lmp 1 wk ago Musculoskeletal History: Reports: Back Pain, Chronic, Fracture Other Musculoskeletal History: wrist Neurological History: Reports: Headaches, Chronic Psychiatric History: Reports: Depression Endocrine/Metabolic History: Reports: Obesity/BMI 30+ Dermatologic History: Reports: Psoriasis - Infectious Disease History Infectious Disease History: Reports: Chicken Pox, MRSA Social & Family History - Family History Family Medical History: Unobtainable - Caffeine Use Caffeine Use: Reports: None - Living Situation & Occupation Living situation: Reports: Single Occupation: Employed ED ROS GENERAL - Review of Systems Review Of Systems: See Below Constitutional: Reports: No Symptoms HEENT: Reports: No Symptoms Respiratory: Reports: No Symptoms Cardiovascular: Reports: No Symptoms GI/Abdominal: Reports: Abdominal Pain. Denies: Black Stool, Bloody Stool, Constipation, Diarrhea, Decreased Appetite, Distension, Flatus, Hematemesis, Hematochezia, Melena, Nausea, Vomiting : Reports: No Symptoms Musculoskeletal: Reports: No Symptoms Skin: Reports: Erythema (minimal erythema around surgical wound site. ) Neurological: Reports: No Symptoms ED EXAM, GI/ABD - Physical Exam Exam: See Below Exam Limited By: No Limitations General Appearance: Alert, WD/WN, No Apparent Distress, Obese Eyes: Bilateral: Normal Appearance Ears: Normal External Exam, Normal Canal, Hearing Grossly Normal Nose: Normal Inspection, No Blood Throat/Mouth: Normal Inspection, Normal Lips, Normal Oropharynx, Normal Voice, No Airway Compromise Head: Atraumatic, Normocephalic Neck: Normal Inspection Respiratory/Chest: No Respiratory Distress, Lungs Clear, Normal Breath Sounds, No Accessory Muscle Use Cardiovascular: Regular Rate, Rhythm, No Edema GI/Abdominal Exam: Normal Bowel Sounds, Soft, No Distention, Tender (seems to be abdominal wall tenderness). No: Distended Back Exam: Normal Inspection. No: CVA Tenderness (R), CVA Tenderness (L) Extremities: Normal Inspection, Normal Range of Motion, Non-Tender, No Pedal Edema. No: Pedal Edema Neurological: Alert, Oriented, CN II-XII Intact, Normal Cognition, No Motor/Sensory Deficits Psychiatric: Normal Affect, Normal Mood Skin Exam: Warm, Dry, Intact, No Rash, Erythema (minimal nitesh-surgical wound redness with no increased warmth. ) Course - Vital Signs Last Recorded V/S: Last Vital Signs Temp 36.8 C 11/03/20 17:58 Pulse 87 11/03/20 17:58 Resp 16 11/03/20 17:58 BP 137/75 11/03/20 17:58 Pulse Ox 97 11/03/20 17:58 - Orders/Labs/Meds Orders: Active Orders 24 hr Category Date Time Status CULTURE URINE [RM] Stat Lab 11/03/20 18:51 Ordered Labs: Laboratory Tests 11/03/20 11/03/20 11/03/20 Range/Units 18:06 18:16 18:16 WBC 6.6 (4.5-11.0) K/uL RBC 4.45 (3.30-5.50) M/uL Hgb 12.3 (12.0-15.0) g/dL Hct 39.2 (36.0-48.0) % MCV 88 (80-98) fL MCH 28 (27-31) pg MCHC 31 L (32-36) % Plt Count 235 (150-400) K/uL C-Reactive Protein 0.82 H (0.0-0.3) mg/dL Urine Color Yellow (YELLOW) Urine Appearance Slightly cloudy A (CLEAR) Urine pH 5.5 (5.0-8.0) Ur Specific [place] 1.010 (1.008-1.030) Urine Protein Negative (NEGATIVE) mg/dL Urine Glucose (UA) Negative (NEGATIVE) mg/dL Urine Ketones Negative (NEGATIVE) mg/dL Urine Occult Blood Moderate H (NEGATIVE) Urine Nitrite Negative (NEGATIVE) Urine Bilirubin Negative (NEGATIVE) Urine Urobilinogen 0.2 (0.2-1.0) EU/dL Ur Leukocyte Esterase Small H (NEGATIVE) Urine RBC 5-10 H (0-5) Urine WBC 30-40 H (0-5) Ur Epithelial Cells Moderate Amorphous Sediment Not seen Urine Bacteria Many Urine Mucus Not seen Meds: Medications Discontinued Medications Generic Name Dose Route Start Last Admin Trade Name Freq PRN Reason Stop Dose Admin Ketorolac Tromethamine 60 mg 11/03/20 18:01 11/03/20 18:19 Toradol IM 11/03/20 18:02 60 mg ONETIME ONE Administration Nitrofurantoin Macrocrystals 100 mg 11/03/20 18:51 Macrobid PO 11/03/20 18:52 ONETIME ONE Departure - Departure Time of Disposition: 19:00 Disposition: Home, Self-Care 01 Condition: Good Clinical Impression: UTI (urinary tract infection) Qualifiers: Urinary tract infection type: acute cystitis Hematuria presence: without hematuria Qualified Code(s): N30.00 - Acute cystitis without hematuria Abdominal pain Qualifiers: Abdominal location: lower abdomen, unspecified Qualified Code(s): R10.30 - Lower abdominal pain, unspecified - Discharge Information *PRESCRIPTION DRUG MONITORING PROGRAM REVIEWED*: No *COPY OF PRESCRIPTION DRUG MONITORING REPORT IN PATIENT CORY: No Prescriptions: Nitrofurantoin Monohyd/M-Cryst [Macrobid 100 mg Capsule] 100 mg PO Q12H #10 capsule Ketorolac [Toradol] 10 mg PO Q6H PRN #10 tab PRN Reason: Pain Instructions: Urinary Tract Infection, Adult, [id number] Referrals: Cynthia Loredo CNM [Primary Care Provider] - Forms: ED Department Discharge Additional Instructions: Take Macrobid every 12 hrs until gone. Recheck with your provider if not improving. Take Toradol every 6 hrs as needed for pain relief. Add acetaminophen for added relief if needed. Don't take ibuprofen while taking Toradol. You may add AZO for symptoms as needed, follow package instructions. Sepsis Event Note (ED) - Evaluation Sepsis Screening Result: No Definite Risk - Focused Exam Vital Signs: Vital Signs Temp Pulse Resp BP Pulse Ox 11/03/20 17:58 36.8 C 87 16 137/75 97 11/03/20 17:37 36.8 C 87 16 137/75 97 - My Orders Last 24 Hours: My Active Orders 11/03/20 18:51 CULTURE URINE [RM] Stat - Assessment/Plan Last 24 Hours: My Active Orders 11/03/20 18:51 CULTURE URINE [RM] Stat
[2020-11-03] MEDS ORDERED: Nitrofurantoin Monohydrate/Macrocrystalline 100 MG Cap PO ONE (18:51)
== END 2020-11-03 19:13 | disposition home or self-care (01) ==
LOC: JP.ED 17:19
DX: N30.00 Acute cystitis without hematuria (principal); I10 Essential (primary) hypertension; J45.909 Unspecified asthma, uncomplicated; F32.9 Major depressive disorder, single episode, unspecified; E66.9 Obesity, unspecified; Z68.43 Body mass index [BMI] 50.0-59.9, adult; Z79.899 Other long term (current) drug therapy
CPT/HCPCS: 36415; 81001; 85027; 86140; 87086; 96372; 99284; A9270; J1885

== ENCOUNTER 2021-04-15 17:10 | Emergency (ER) | payer MEDICAID ==
[2021-04-15 17:23] VITALS: BP 141/82; PULSE 100
--- NOTE | 2021-04-15 17:56 | EDM.PDOC ---
<Melanie Castaneda - Last Filed: 04/15/21 18:17> ED HPI GENERAL MEDICAL PROBLEM - General Chief Complaint: Lower Extremity Injury/Pain Stated Complaint: L KNEE INJURY Time Seen by Provider: 04/15/21 17:40 Source of Information: Reports: Patient History Limitations: Reports: No Limitations - History of Present Illness INITIAL COMMENTS - FREE TEXT/NARRATIVE: 20 year old female patient with history of ACL tear to left lower extremity arrives with complaints of left knee injury. Patient reports playing softball last night, was running and tripped, twisted knee, and fell to the ground. Patient reports initial pain being severe and states that she could not get up without assistance. Patient states that she has been "hobbling" around since and around noon today began to have increased pain and swelling to left knee. Pt reports that she now has difficulty bearing weight at all. Onset: Today Duration: Day(s): Location: Reports: Lower Extremity, Left Severity: Severe Improves with: Reports: Immobilization Worsens with: Reports: Movement Context: Reports: Activity Associated Symptoms: Reports: No Other Symptoms - Related Data Allergies Allergy/AdvReac Type Severity Reaction Status Date / Time No Known Allergies Allergy Verified 11/03/20 18:00 Home Meds: Home Meds Pnv No.95/Ferrous Fum/Folic AC [ Caplet] 1 tab PO DAILY 08/30/20 [History] Sertraline [Zoloft] 1 tab PO DAILY 08/30/20 [History] Acetaminophen/HYDROcodone [Wolbach 325-5 MG] 1 tab PO Q6H PRN #28 tablet 10/08/20 [Rx] Ibuprofen [Motrin] 600 mg PO Q6H #40 tablet 10/08/20 [Rx] Ketorolac [Toradol] 10 mg PO Q6H PRN #10 tab 11/03/20 [Rx] Nitrofurantoin Monohyd/M-Cryst [Macrobid 100 mg Capsule] 100 mg PO Q12H #10 capsule 11/03/20 [Rx] Past Medical History - Past Health History Medical/Surgical History: Denies Medical/Surgical History HEENT History: Reports: Impaired Vision Cardiovascular History: Reports: Heart Murmur, Hypertension Respiratory History: Reports: Asthma Genitourinary History: Reports: None CLOSET BUILDER History: Reports: Other 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 Musculoskeletal History: Reports: Back Pain, Chronic, Fracture Other Musculoskeletal History: wrist Neurological History: Reports: Headaches, Chronic Psychiatric History: Reports: Depression Endocrine/Metabolic History: Reports: Obesity/BMI 30+ Dermatologic History: Reports: Psoriasis - Infectious Disease History Infectious Disease History: Reports: Chicken Pox, MRSA - Past Surgical History Head Surgeries/Procedures: Reports: None HEENT Surgical History: Reports: None Cardiovascular Surgical History: Reports: None Respiratory Surgical History: Reports: None Female Surgical History: Reports: Section Endocrine Surgical History: Reports: None Neurological Surgical History: Reports: None Musculoskeletal Surgical History: Reports: None Dermatological Surgical History: Reports: None Social & Family History - Family History Family Medical History: Unobtainable - Tobacco Use Tobacco Use Status *Q: Never Tobacco User Second Hand Smoke Exposure: No - Caffeine Use Caffeine Use: Reports: None - Recreational Drug Use Recreational Drug Use: No - Living Situation & Occupation Living situation: Reports: Single Occupation: Employed Review of Systems - Review of Systems Review Of Systems: See Below Constitutional: Reports: No Symptoms Eyes: Reports: No Symptoms Ears: Reports: No Symptoms Nose: Reports: No Symptoms Mouth/Throat: Reports: No Symptoms Respiratory: Reports: No Symptoms Cardiovascular: Reports: No Symptoms GI/Abdominal: Reports: No Symptoms Genitourinary: Reports: No Symptoms Musculoskeletal: Reports: Other (left knee pain and swelling after softball inj ury) Skin: Reports: No Symptoms Neurological: Reports: No Symptoms Psychiatric: Reports: No Symptoms ED EXAM, GENERAL - Physical Exam Exam: See Below Free Text/Narrative:: Patients knee doesn't appear overtly swollen, mild edema may be present. Pt has knee extended on stool and grimaces with flexion and extension. CMS+ Exam Limited By: No Limitations General Appearance: Alert, No Apparent Distress Respiratory/Chest: No Respiratory Distress Cardiovascular: Normal Peripheral Pulses Peripheral Pulses: 2+: Dorsalis Pedis (L) Extremities: Leg Pain, Other (left knee pain after softball injury last night, ) Neurological: Alert, Oriented Psychiatric: Normal Affect Skin Exam: Warm, Dry Course - Vital Signs Text/Narrative:: Evaluation of knee, mild swelling noted, intolerance to activity or motion due to pain so xray ordered. No fx on xray. flavio wrap for comfort applied Departure - Departure Disposition: Home, Self-Care 01 Condition: Good Clinical Impression: Injury, knee, Sprain of knee - Discharge Information Instructions: Knee Sprain, Adult Referrals: Cynthia Loredo CNM [Primary Care Provider] - Forms: ED Department Discharge Additional Instructions: No fracture noted on your knee xray today. Recommend rest, ice and elevation. Tylenol and or ibuprofen for pain or discomfort. Wear Flavio wrap for support and comfort. Follow up with [facility] in a week if symptoms are not improving. Return with any increased swelling, numbness/ tingling, or worsening condition. <Sami Castillo - Last Filed: 04/16/21 11:43> Course - Vital Signs Last Recorded V/S: Last Vital Signs Temp 96.6 F L 04/15/21 17:49 Pulse 100 04/15/21 17:49 Resp 22 H 04/15/21 17:49 BP 141/82 H 04/15/21 17:49 Pulse Ox 96 04/15/21 17:49 - Orders/Labs/Meds Orders: Active Orders 24 hr Category Date Time Status Knee 3V Lt [CR] Stat Exams 04/15/21 17:48 Taken - Re-Assessments/Exams Free Text/Narrative Re-Assessment/Exam: 04/15/21 18:29 20-year-old injured her left knee playing softball last night. Her exam revealed tenderness along the lateral joint line, with increased pain with valgus stress. No appreciable effusion. Please refer to complete notes from nurse practitioner student. X-ray was negative, a 6 inch Flavio wrap was applied to the knee and the patient will increase activity as tolerated and recheck next week if not improving. Patient declined a knee immobilizer and crutches Departure - Departure Time of Disposition: 18:38 - My Orders Last 24 Hours: My Active Orders 04/15/21 17:48 Knee 3V Lt [CR] Stat - Assessment/Plan Last 24 Hours: My Active Orders 04/15/21 17:48 Knee 3V Lt [CR] Stat Attestation - Student - Attestation Statement Attestation Statement: I personally performed or re-performed the physical examination and medical decision making. I have verified all student documentation or findings, including history, physical exam and/or medical decision making.
--- NOTE | 2021-04-18 09:14 | CR ---
Knee 3V Lt CLINICAL HISTORY: Injury FINDINGS: No acute fracture or dislocation is noted. There are no osseous lesions. Articular surfaces are smooth. Impression: Negative
== END 2021-04-15 18:38 | disposition home or self-care (01) ==
LOC: JP.ED 17:10
DX: S83.92XA Sprain of unspecified site of left knee, initial encounter (principal); I10 Essential (primary) hypertension; E66.9 Obesity, unspecified; Z68.30 Body mass index [BMI] 30.0-30.9, adult; X50.1XXA Overexertion from prolonged static or awkward postures, initial encounter; Y93.64 Activity, baseball
CPT/HCPCS: 73562-26-LT; 73562-LT; 99283-25

== ENCOUNTER 2021-05-27 07:25 | Day surgery (SDC) | payer MEDICAID ==
[~2021-05-27 07:25] MED LIST: Bacitracin Oint 1 GM U/D Packet ONE; Bupivacaine 0.5% 50 ML MDV ONE; Lidocaine 1% with EPINEPHrine 1:100,000 50 ML MDV ONE; Meropenem 500 MG SDV ONE
[2021-05-27] MEDS ORDERED: Acetaminophen 500 MG Tab PO ONE (08:00)
[2021-05-27] MEDS ORDERED: Dextrose 5%-Lactated Ringers 1,000 ML IV SCH (08:30)
[2021-05-27] MEDS ORDERED: Meropenem 500 MG in Sodium Chloride 0.9% 50 ML IV ONE (08:45)
[2021-05-27 08:49] LABS: CORONAVIRUS COVID-19 NAA NEGATIVE (NEGATIVE)
[2021-05-27] MEDS ORDERED: fentaNYL 100 MCG/2 ML SDV ONE (10:24)
[2021-05-27] MEDS ORDERED: Propofol 200 MG/20 ML SDV ONE ×2 (10:24→10:38)
[2021-05-27] MEDS ORDERED: Midazolam 1 MG/ML 2 ML SDV ONE ×2 (10:24→10:42)
[2021-05-27 12:40] VITALS: BP 135/74; PULSE 63
--- NOTE | 2021-06-01 13:49 | OR ---
DATE OF PROCEDURE: 05/27/2021 SURGEON: Edenilson Obrien MD PREOPERATIVE DIAGNOSIS: Infected hidradenitis suppurativa of right axilla. POSTOPERATIVE DIAGNOSIS: Infected hidradenitis suppurativa of right axilla. PROCEDURE PERFORMED: Excision of infected hidradenitis suppurativa of right axilla (87674). ANESTHESIA: Local plus IV sedation. INDICATION FOR PROCEDURE: A 20-year-old female presenting with some flare-up of her hidradenitis suppurativa in the right axilla. Plan is to proceed with wide excision of this with the wound to be left open for secondary closure. Potential risks of the procedure including further bleeding, infection, subsequent redevelopment of hidradenitis in the area around the excision, as well as possible injury to the nerves underlying the point of excision were all gone over, and the patient wishes to proceed. DETAILS OF PROCEDURE: The patient was taken to the operating room and placed in a supine position with the right arm extended. The right axilla and surrounding areas were prepped and draped while the patient received some IV sedation. excision measuring around 12 cm involving the area of hidradenitis was then made and carried down through the skin and subcutaneous tissue and the excision then carried out in a plane without significant residual inflammation, thus showing essentially complete clearance of the active hidradenitis suppurativa. Cultures were obtained, and the wound was then packed open with iodoform gauze. It had been anesthetized with 1% lidocaine mixed with Marcaine, and the patient was taken to the recovery room in satisfactory condition. Edenilson Obrien MD /[id number]
== END 2021-05-27 12:10 | disposition home or self-care (01) ==
LOC: JP.SDS 07:25
PROVIDERS: ATTEND Surgery
DX: L73.2 Hidradenitis suppurativa (principal); L72.0 Epidermal cyst; Z01.812 Encounter for preprocedural laboratory examination; Z20.822 Contact with and (suspected) exposure to COVID-19
CPT/HCPCS: 0241U; 11450; 81025; 87070; 87075; 87205; 88304; A9270; J2250; J2704; J3010; J7121; J2185; J3490

== ENCOUNTER 2021-07-14 06:36 | Inpatient (IN) | payer MEDICAID ==
[2021-07-14] MEDS ORDERED: Scopolamine 1.5 MG Transdermal Patch TOP ONE (06:45)
[2021-07-14] MEDS ORDERED: Acetaminophen 500 MG Tab PO ONE (06:45)
[2021-07-14] MEDS ORDERED: Celecoxib 200 MG Cap PO ONE (06:45)
[2021-07-14] MEDS ORDERED: Dextrose 5%-Lactated Ringers 1,000 ML IV SCH ×2 (07:00→12:15)
[2021-07-14] MEDS ORDERED: Neostigmine Methylsulfate 1 MG/ML 5 ML Syringe ONE (07:04)
[2021-07-14] MEDS ORDERED: Propofol 200 MG/20 ML SDV ONE (07:04)
[2021-07-14] MEDS ORDERED: Rocuronium 50 MG/5 ML Vial ONE (07:04)
[2021-07-14] MEDS ORDERED: Ondansetron 4 MG/2 ML SDV ONE (07:04)
[2021-07-14] MEDS ORDERED: Glycopyrrolate 0.2 MG/ML 5 ML MDV ONE (07:04)
[2021-07-14] MEDS ORDERED: Dexamethasone 4 MG/ML SDV ONE (07:04)
[2021-07-14] MEDS ORDERED: Succinylcholine 200 MG/10 ML MDV ONE (07:04)
[2021-07-14] MEDS ORDERED: fentaNYL 250 MCG/5 ML SDV ONE ×2 (07:05→08:42)
[2021-07-14] MEDS ORDERED: cefOXitin 2 GM Vial ONE (07:25)
[2021-07-14] MEDS ORDERED: Albuterol/Ipratropium 3.0-0.5 MG/3 ML Neb Soln NEB ONE (07:45)
[2021-07-14] MEDS ORDERED: cefOXitin 2 GM in Sodium Chloride 0.9% 50 ML IV ONE (08:15)
[2021-07-14] MEDS ORDERED: SODIUM CHLORIDE 0.9% IV SCH (08:30)
[2021-07-14] MEDS ORDERED: MAGNESIUM SULFATE IV SCH (08:30)
[2021-07-14] MEDS ORDERED: Ketamine 500 MG/5 ML MDV IV SCH (08:30)
[2021-07-14] MEDS ORDERED: Ketamine 17 MG in Sodium Chloride 0.9% 19.83 ML IV SCH (08:30)
[2021-07-14] MEDS ORDERED: SODIUM CHLORIDE 0.9% IV ONE (08:30)
[2021-07-14] MEDS ORDERED: MAGNESIUM SULFATE IV ONE (08:30)
[2021-07-14] MEDS ORDERED: Labetalol 20 MG/4 ML Syringe ONE (09:33)
[2021-07-14] MEDS ORDERED: fentaNYL 100 MCG/2 ML SDV IVPUSH ONE (09:55)
[2021-07-14] MEDS ORDERED: hydrOXYzine HCL 100 MG/2 ML SDV IM ONE (09:55)
[2021-07-14] MEDS ORDERED: Cyclobenzaprine 10 MG Tab PO PRN (12:14)
[2021-07-14] MEDS: HYDROmorphone 1 MG/ML Syringe IV PRN ×2 (12:28→18:55)
[2021-07-14] MEDS ORDERED: diphenhydrAMINE 50 MG/ML SDV IVPUSH PRN (13:00)
[2021-07-14] MEDS ORDERED: Acetaminophen 500 MG Tab PO PRN (13:00)
[2021-07-14] MEDS ORDERED: Albuterol/Ipratropium 3.0-0.5 MG/3 ML Neb Soln INH PRN (13:00)
[2021-07-14] MEDS ORDERED: Labetalol 20 MG/4 ML Syringe IVPUSH PRN (13:00)
[2021-07-14] MEDS ORDERED: Metoclopramide 10 MG/2 ML SDV IVPUSH PRN (13:00)
[2021-07-14] MEDS ORDERED: Calcium Gluconate 10% 1 GM/10 ML SDV IVPUSH PRN (13:00)
[2021-07-14] MEDS ORDERED: HYDROmorphone 0.5 MG/0.5 ML Syringe IVPUSH PRN (13:00)
[2021-07-14] MEDS ORDERED: hydrOXYzine HCL 100 MG/2 ML SDV IM PRN (13:00)
[2021-07-14] MEDS ORDERED: Pantoprazole 40 MG Vial IVPUSH SCH (14:00)
[2021-07-14] MEDS: Albuterol/Ipratropium 3.0-0.5 MG/3 ML Neb Soln INH SCH ×2 (14:28→21:20)
[2021-07-14] MEDS: traMADol 50 MG Tab PO PRN ×2 (14:44→21:35)
[2021-07-14] MEDS: cefOXitin 2 GM in Sodium Chloride 0.9% 50 ML IV SCH ×2 (14:45→19:39)
[2021-07-14] MEDS ORDERED: MVI, Adult with Vitamin K 10 ML, Thiamine 200 MG, Zinc/Copper/Manganese/Selenium 1 ML i... IV SCH ×4 (16:00)
[2021-07-14] MEDS: Acetaminophen 500 MG Tab PO SCH ×2 (16:06→21:20)
[2021-07-14] MEDS: oxyCODONE 5 MG Tab PO PRN (16:13)
[2021-07-14] MEDS: Heparin Sodium 5,000 Units/ML Vial SUBCUT SCH (17:43)
[2021-07-14] MEDS: Ondansetron 4 MG/2 ML SDV IVPUSH PRN (18:49)
[2021-07-15] MEDS: oxyCODONE 5 MG Tab PO PRN (00:47)
[2021-07-15] MEDS: cefOXitin 2 GM in Sodium Chloride 0.9% 50 ML IV SCH ×2 (02:04→08:22)
[2021-07-15] MEDS ORDERED: Iopamidol 612 MG/ML 50 ML SDV PO STA (02:05)
[2021-07-15] MEDS: Ondansetron 4 MG/2 ML SDV IVPUSH PRN (02:16)
[2021-07-15] MEDS: Heparin Sodium 5,000 Units/ML Vial SUBCUT SCH ×2 (05:19→17:44)
[2021-07-15] MEDS: Acetaminophen 500 MG Tab PO SCH ×3 (05:19→22:23)
[2021-07-15] MEDS: Albuterol/Ipratropium 3.0-0.5 MG/3 ML Neb Soln INH SCH ×4 (07:19→20:20)
[2021-07-15] MEDS: Ondansetron 4 MG Tab.DIS PO PRN ×3 (08:21→19:28)
[2021-07-15] MEDS: Celecoxib 200 MG Cap PO SCH ×2 (08:22→20:19)
[2021-07-15] MEDS: SCOPOLAMINE PATCH CHECK TOP SCH (08:22)
[2021-07-15] MEDS: Sertraline 50 MG Tab PO SCH (08:22)
--- NOTE | 2021-07-15 09:55 | PCM.EKG ---
#1 Interpretation EKG Date: 07/14/21 Time: 07:32 Rhythm: NSR Rate (Beats/Min): 72 Gilbert: Normal P-Wave: Present QRS: Normal ST-T: Normal QT: Normal AR/PQ Interval: normal Comparison: NA - No Prior EKG
--- NOTE | 2021-07-15 10:01 | PN ---
DATE OF SERVICE: 07/15/2021 SUBJECTIVE: Nina is postop day #1. Her upper GI was normal. Oral intake 600. Urine output 1800. JAGUAR drain put out 40. She has had quite a bit of medications for pain including oxycodone, Vistaril, tramadol, and Dilaudid. Oral intake 600, output 1800. JAGUAR drain was 40. She has been up ambulating and using her incentive spirometer. Remainder of review of systems negative for any pertinent positives and negatives. OBJECTIVE: GENERAL: Nina Marin is a 21-year-old female, alert and orientated. VITAL SIGNS: TPR is 95.8, 82, 18. Blood pressure 144/83. HEENT: Negative. NECK: Supple. HEART: Regular rate and rhythm. LUNGS: Clear. ABDOMEN: Dressings dry and intact. Abdominal binder is on. JAGUAR drain intact. EXTREMITIES: Without peripheral edema. ASSESSMENT: 1. Diagnostic laparoscopy with: a. Laparoscopic sleeve gastrectomy. b. Liver biopsy. c. Repair of diaphragmatic hernia. d. Excision of mediastinal lipoma. POSTOPERATIVE DIAGNOSES: 1. Morbid obesity. 2. Fatty infiltration of liver. 3. History of hepatitis C. 4. Diaphragmatic hernia. 5. Mediastinal lipoma. PLAN: 1. Decrease IV to 100 mL per hour. 2. Dressing off, may shower. 3. Step 2 gastric bypass diet without cereal. 4. Atarax 50 mg q.4 hours p.r.n. pain. 5. Zofran ODT 4 mg every 4 hours sublingual p.r.n. nausea. 6. Communication order, 1 med cup per hour and record at bedside. 7. Energy protocol encouraged. Recommend using the Atarax oral and Flexeril. 8. Continue use of incentive spirometer and ambulation. 9. We will evaluate p.r.n. or in a.m. Lashonda Ruiz PA-C /[id number]
[2021-07-15] MEDS: Dextrose 5%-Lactated Ringers 1,000 ML IV SCH (10:46)
[2021-07-15] MEDS: hydrOXYzine HCl 25 MG Tab PO PRN ×2 (11:14→19:28)
[2021-07-15] MEDS: traMADol 50 MG Tab PO PRN ×2 (12:39→20:19)
[2021-07-15] MEDS: Pantoprazole 40 MG Delayed-Release Granules 1 Packet PO SCH (13:20)
[2021-07-15] MEDS ORDERED: MVI, Adult with Vitamin K 10 ML, Thiamine 200 MG, Zinc/Copper/Manganese/Selenium 1 ML i... IV SCH ×4 (16:00)
--- NOTE | 2021-07-16 00:25 | CRLCR ---
For Patients: As a result of the Century Cures Act, medical imaging exams and procedure reports are released immediately into your electronic medical record. You may view this report before your referring provider. If you have questions, please contact your health care provider. Indication: Postop gastric sleeve surgery. Technique: Modified upper GI 3 views. Comparison: None. Findings/Impression: There are gastric sleeve postop changes. Oral contrast is intraluminal. No sign of leak or other postoperative complication. Dictated by Ruben Zuniga MD @ 07/16/2021 12:24:49 AM (Electronically Signed)
[2021-07-16] MEDS: Dextrose 5%-Lactated Ringers 1,000 ML IV SCH ×2 (04:53→14:13)
[2021-07-16] MEDS: Acetaminophen 500 MG Tab PO SCH ×3 (06:05→21:41)
[2021-07-16] MEDS: Heparin Sodium 5,000 Units/ML Vial SUBCUT SCH ×2 (06:05→17:53)
[2021-07-16] MEDS: Albuterol/Ipratropium 3.0-0.5 MG/3 ML Neb Soln INH SCH ×4 (07:03→21:36)
[2021-07-16] MEDS: Ondansetron 4 MG Tab.DIS PO PRN (07:37)
--- NOTE | 2021-07-16 07:40 | PN ---
DATE OF SERVICE: 07/16/2021 SUBJECTIVE: Nina has been quite nauseated. Oral intake was 610. Urine output 3750. JAGUAR drain put out 90 mL. She reports that water, anything she sips, makes her nauseated. She has had no emesis. Taking Zofran, which does help with the nausea. REVIEW OF SYSTEMS: Remainder of review of systems negative for any pertinent positives and negatives. OBJECTIVE: GENERAL: Nina Marin is a 21-year-old female. She is alert and orientated. VITAL SIGNS: TPR is 95.6, 87, 14, blood pressure 140/97. HEENT: Negative. NECK: Supple. HEART: Regular rate and rhythm. LUNGS: Clear. ABDOMEN: Dressings dry and intact. Abdominal binder is on. EXTREMITIES: Without peripheral edema. ASSESSMENT: Diagnostic laparoscopy with: 1. Laparoscopic sleeve gastrectomy. 2. Liver biopsy. 3. Repair of diaphragmatic hernia. 4. Excision of mediastinal lipoma. POSTOPERATIVE DIAGNOSES: 1. Morbid obesity. 2. Fatty infiltration of liver. 3. History of hepatitis C. 4. Diaphragmatic hernia. 5. Mediastinal lipoma. PLAN: 1. Continue Zofran ODT for nausea. 2. Communication order: 3 med cups per hour or 1 every 20 minutes, record at bedside. 3. We will evaluate p.r.n. or in a.m. Lashonda Ruiz PA-C /[id number]
[2021-07-16] MEDS: Sertraline 50 MG Tab PO SCH (08:42)
[2021-07-16] MEDS: Celecoxib 200 MG Cap PO SCH ×2 (08:42→21:41)
[2021-07-16] MEDS: SCOPOLAMINE PATCH CHECK TOP SCH (08:43)
[2021-07-16] MEDS ORDERED: Cyanocobalamin (Vitamin B12) 1,000 MCG/ML SDV IM ONE (09:00)
[2021-07-16] MEDS: Pantoprazole 40 MG Delayed-Release Granules 1 Packet PO SCH (14:10)
[2021-07-17] MEDS: Dextrose 5%-Lactated Ringers 1,000 ML IV SCH (00:17)
[2021-07-17] MEDS: Acetaminophen 500 MG Tab PO SCH (05:31)
[2021-07-17] MEDS: Heparin Sodium 5,000 Units/ML Vial SUBCUT SCH (05:31)
[2021-07-17 07:18] VITALS: BP 134/78; PULSE 78
[2021-07-17] MEDS: Albuterol/Ipratropium 3.0-0.5 MG/3 ML Neb Soln INH SCH (07:30)
[2021-07-17] MEDS: Sertraline 50 MG Tab PO SCH (08:54)
[2021-07-17] MEDS: Celecoxib 200 MG Cap PO SCH (08:54)
[2021-07-17] MEDS ORDERED: Magnesium Hydroxide 400 MG/5 ML Susp 30 ML Cup PO ONE (09:00)
--- NOTE | 2021-07-18 09:35 | DISCH ---
ADMISSION DIAGNOSES: 1. Morbid obesity. 2. BMI 54.2. 3. Hepatitis C antibody positive in blood. 4. Asthma. 5. Post-traumatic stress disorder. 6. Adjustment disorder. DISCHARGE DIAGNOSES: Diagnostic laparoscopy with: 1. Laparoscopic sleeve gastrectomy. 2. Liver biopsy. 3. Repair of diaphragmatic hernia. 4. Excision of mediastinal lipoma. POSTOPERATIVE DIAGNOSES: 1. Morbid obesity. 2. Fatty infiltration of liver. 3. History of hepatitis C. 4. Diaphragmatic hernia. 5. Mediastinal lipoma. HISTORY: Nina Marin is a pleasant 21-year-old female with longstanding history of morbid obesity and increasing comorbidities. After preoperative evaluation and discussion of possible risks and possible complications, she wished to proceed with surgical procedure. HOSPITAL COURSE: Nina had her surgery on 07/14/2021. She had no operative complications. On postoperative day #1, she was started on a step 2 gastric bypass diet and was instructed to drink 3 med cups per hour. Later on in the day, she became very nauseated even with water. Her oral intake in 24 hours was 610. She received Zofran ODT for increased nausea. Bariatric diet teaching was done, and on postoperative day #3, she was able to be discharged to home. PHYSICAL EXAMINATION: GENERAL: Nina is a 21-year-old female, alert and orientated. VITAL SIGNS: Height 5 feet 6 inches, weight 336 pounds, BMI 54.2. TPR 95, 78, 18, blood pressure 134/78. HEENT: Negative. NECK: Supple. HEART: Regular rate and rhythm. LUNGS: Clear. ABDOMEN: Trocar incisions look good. Sutures intact. Abdominal binder has been on. EXTREMITIES: Without peripheral edema. She did have her IV in her left arm infiltrate, this is edematous today. PSYCHIATRIC: Mood and affect appropriate. DISPOSITION: Discharged to home. CONDITION: Stable and improving. FOLLOWUP: Appointment with Lashonda Ruiz PA-C, on 07/26/2021 at 9 a.m. HOME MEDICATIONS: 1. Zofran ODT 4 mg q.4 hours p.r.n. nausea, #30. 2. Celebrex 200 mg p.o. b.i.d. 3. Tylenol 1000 mg q.8 hours p.r.n. nausea. 4. Resume home medications of: a. Sertraline 100 mg p.o. daily. b. Tremfya 100 mg subcu every 8 weeks. c. Albuterol inhaler 2 puffs every 4 hours p.r.n. DIET: Step 2 gastric bypass diet without cereal for 1 month. May advance diet on 08/14/2021. Drink 8 to 10 glasses of water a day, 65 g of protein. ACTIVITY: No lifting greater than 10 pounds for 2 weeks. OTHER ACTIVITY: Walk 6 times daily inside your home. Driving: Do not drive for 1 week. Shower/bathing: May shower. Keep operative site clean and dry. Wear abdominal binder for 2 weeks, then as tolerated. Notify provider if any fever, increased pain, swelling, redness, drainage, nausea, vomiting. Use incentive spirometer 10 times every hour while awake. /[id number]
--- NOTE | 2021-07-22 10:16 | OR ---
DATE OF PROCEDURE: 07/14/2021 SURGEON: Edenilson Obrien MD PREOPERATIVE DIAGNOSIS: Morbid obesity. POSTOPERATIVE DIAGNOSES: 1. Morbid obesity. 2. Mild gross fatty infiltration of liver (the patient is status post clearance of hepatitis C). 3. Paraesophageal diaphragmatic hernia. 4. Mediastinal lipoma. OPERATIVE PROCEDURES: Diagnostic laparoscopy with: 1. Laparoscopic sleeve gastrectomy (34063). 2. Jamal-Cut needle liver biopsy (14214). 3. Repair of paraesophageal diaphragmatic hernia (88653). 4. Excision of mediastinal lipoma (39144). ANESTHESIA: General. INDICATIONS FOR PROCEDURE: This is a 21-year-old female presenting with longstanding morbid obesity and increasingly significant comorbidities. After preoperative evaluation and discussion, she wished to proceed with gastrectomy. Potential risks of the procedure including bleeding, infection, injury to underlying viscera, leaks from sleeve gastrectomy staple line as well as possibility of cardiopulmonary, septic, or hemorrhagic complications leading to were discussed, and the patient wishes to proceed. DETAILS OF PROCEDURE: The patient was taken to the operating room. After general endotracheal anesthesia was induced, placed in a lithotomy position and the abdomen prepped and draped. A 15 cm inferior and 5 cm left of xiphoid process, a transverse incision was made and the peritoneal cavity entered under direct vision with an Optiview trocar, inflated to 15 mmHg pressure with CO2. Laparoscope was reinserted. No underlying trocar insertion site injuries were seen. Following this, bilateral transversus abdominis plane blocks were placed and 6 additional trocars were placed across the upper and mid abdomen. The liver was examined and the liver itself appeared to be near normal sized and had grossly some minimal fatty infiltration. There was no nodularity present and there appeared to be no evidence of portal hypertension throughout the case. Following an update on the patient's histologic status with her being status post clearance of hepatitis C, Jamal-Cut needle biopsy obtained from the left lobe of liver. Minimal bleeding from the biopsy sites was controlled with electrocautery. The liver was then retracted anteriorly. The patient was noted to have a moderate-sized paraesophageal diaphragmatic hernia with prolapse of perigastric fat, some gastric fundus, and some of the omentum along the edge of the spleen present in the course of anterior length of the esophagus. This was reduced. The peritoneum overlying incised and reflected downward. During the course of the crural dissection, a mediastinal lipoma was encountered and this was excised to allow more adequate crural repair. The latter was then accomplished anteriorly with 0 Ethibond sutures reinforced with PTFE pledgets. The omentum was then divided from the greater curvature with Harmonic Scalpel. This dissection then continued proximally along the stomach toward the fundus including division of the short gastric vessels including the highest and posterior short gastric vessels. There was clearance of the gastric fundus from the left yadiel of the diaphragm to any cul-de-sac of stomach located in that area. The dissection then continued distally dividing the greater omentum away from the stomach down to the level 0.2 cm proximal to the pylorus. Initial line of stapling across the antrum and then underneath the incisura angularis was then marked out anteriorly with electrocautery and with 3 firings of the sleeve gastrectomy staple line was then accomplished with un-reinforced black loads. Care was taken to avoid overtightening the stomach at the incisura angularis. A 32-[place] suction tube was then passed orally through the esophagogastric junction along the lesser curvature of stomach and into the antrum. This was then pulled up against the lesser curvature of the stomach, placed on suction and served as a template for the remainder of the sleeve gastrectomy resection phase, which was accomplished with a series of reinforced black and purple loads and upon completion of the staple line, the gastric specimen was displaced off to the side and the staple line was inspected and found to be intact. The staple line was then reinforced with fibrin sealant along its length, focusing particularly on the area of the esophagogastric junction. Omentum was tacked up over the esophagogastric junction as well with some 3-0 Vicryl stitch and over the antrum. Similarly, omentum was tacked up. A leak test was accomplished with injection of 120 mL of air in the stomach causing it to distend while it was covered with antibiotic containing saline solution. No evidence of leaks or bleeding were seen. The gastric specimen then delivered from the field through the left lateral trocar site. A Woodrow-Doe drain was also sewed in place through that trocar site and placed adjacent to the esophagogastric junction and from there up into the splenic fossa. The trocars were then sequentially removed and the peritoneal cavity deflated. Incisions were closed with 4-0 Vicryl skin stitch and the drain affixed with some 4-0 Vicryl stitch as well. The patient was taken to the recovery room in satisfactory condition. Edenilson Obrien MD /[id number]
== END 2021-07-17 09:50 | disposition home or self-care (01) | DRG 621 ==
LOC: JP.MS 06:36 → JP.SDS 06:36 → EDSTATUS 07:15 → JP.MS 09:50
PROVIDERS: ADMIT Surgery; ATTEND Surgery
PROC: 0DB64Z3 Excision of Stomach, Percutaneous Endoscopic Approach, Vertical (ICD-10-PCS; principal; 2021-07-14)
PROC: 0FB24ZX Excision of Left Lobe Liver, Percutaneous Endoscopic Approach, Diagnostic (ICD-10-PCS; 2021-07-14)
PROC: 0BQT4ZZ Repair Diaphragm, Percutaneous Endoscopic Approach (ICD-10-PCS; 2021-07-14)
PROC: 0JB63ZZ Excision of Chest Subcutaneous Tissue and Fascia, Percutaneous Approach (ICD-10-PCS; 2021-07-14)
DX: E66.01 Morbid (severe) obesity due to excess calories (principal); Z68.43 Body mass index [BMI] 50.0-59.9, adult; K76.0 Fatty (change of) liver, not elsewhere classified; K44.9 Diaphragmatic hernia without obstruction or gangrene; D17.1 Benign lipomatous neoplasm of skin and subcutaneous tissue of trunk; J45.909 Unspecified asthma, uncomplicated; F41.9 Anxiety disorder, unspecified; F32.9 Major depressive disorder, single episode, unspecified; Z79.899 Other long term (current) drug therapy
CPT/HCPCS: 36415; 74240; 80053; 81025; 83735; 84100; 85027; 86850; 86900; 86901; 88304; 88307; 88313; 93005; 94640; 94762; A9270-GY; C9113; J0171; J0330; J0694; J1100; J1170; J1644; J2405; J2704; J2710; J2795; J3010; J3410; J3411; J3420; J3475; J3490; J7050; J7121; J7620-GY; Q9967